=== PATIENT | male | born 1955 | race Two or more races ===

== ENCOUNTER 2019-11-07 11:05 | Outpatient (CLI) | payer BC, MEDICARE ==
[2019-11-07 13:19] LABS: APPEARANCE,URINE CLEAR (CLEAR); BILIRUBIN,URINE NEGATIVE (NEGATIVE); BLOOD, URINE NEGATIVE Ery/uL (NEGATIVE); KETONES,URINE NEGATIVE (NEGATIVE); LEUKOCYTE ESTERASE ,URINE NEGATIVE (NEGATIVE); NITRITE, URINE NEGATIVE (NEGATIVE); PROTEIN,URINE NEGATIVE (NEGATIVE); UGLUCOSE >=1000 mg/dL (NEGATIVE); UROBILINOGEN,URINE 0.2 EU/dL (0.2)
[2019-11-07 13:26] LABS: COLOR,URINE STRAW (YELLOW)
[2019-11-07 13:51] LABS: ALBUMIN 3.9 g/dL (3.4-5.0); BILIRUBIN,TOTAL 1.3 mg/dL (0.2-1.0); CALCIUM, SERUM 9.3 mg/dL (8.5-10.1); CREATININE 2.5 mg/dL (0.6-1.3); POTASSIUM 3.6 mmol/L (3.5-5.1); TOTAL PROTEIN, SERUM 7.5 g/dL (6.4-8.2)
[2019-11-07 14:52] LABS: BACTERIA,URINE Few /HPF (None Seen); HYALINE CASTS, URINE Few /LPF (None Seen); RBC,URINE 0-2 /HPF (0-2); SQUAMOUS EPITHELIAL CELL,UR Few /HPF (None Seen); WBC,URINE 0-2 /HPF (0-3)
== END 2019-11-07 23:59 | disposition home or self-care (01) ==
LOC: US 11:05
PROVIDERS: ATTEND Internal Medicine Interventional Cardiology
DX: I10 Essential (primary) hypertension (principal); R16.2 Hepatomegaly with splenomegaly, not elsewhere classified; K76.0 Fatty (change of) liver, not elsewhere classified
CPT/HCPCS: 36415; 76700-TC; 80053-TC; 81000-TC

== ENCOUNTER 2023-09-13 07:35 | Inpatient (IN) | payer MEDICARE, BC ==
[~2023-09-13] VITALS: Ht 180.3 cm; Wt 117.9 kg
[2023-09-13 08:45] VITALS: BP 143/69; TEMP 98; O2SAT 98
[2023-09-13 09:00] VITALS: BP 133/61; O2SAT 98
[2023-09-13 09:30] VITALS: BP 137/97; O2SAT 100
[2023-09-13 10:00] VITALS: BP 125/70; O2SAT 100
[2023-09-13 10:15] VITALS: BP 132/81; O2SAT 100
[2023-09-13] MEDS: DRONEDARONE HYDROCHLORIDE 400 MG TABLET PO SCH (10:55)
[2023-09-13 11:30] VITALS: BP 133/84; O2SAT 100
== END 2023-09-13 11:45 | disposition home or self-care (01) | DRG 310 ==
LOC: ICU 07:35 → EDSTATUS 09:30
PROVIDERS: ADMIT Internal Medicine; ATTEND Internal Medicine
PROC: 5A2204Z Restoration of Cardiac Rhythm, Single (ICD-10-PCS; principal; 2023-09-13)
DX: I48.91 Unspecified atrial fibrillation (principal); Z79.899 Other long term (current) drug therapy; I10 Essential (primary) hypertension; E66.9 Obesity, unspecified; G47.33 Obstructive sleep apnea (adult) (pediatric); Z68.36 Body mass index [BMI] 36.0-36.9, adult; Z79.01 Long term (current) use of anticoagulants
CPT/HCPCS: A4223; G0378; J2704; J3490; J7030